=== PATIENT | male | born 1980 | race Caucasian/White ===

== ENCOUNTER → 2021-11-17 | Outpatient (CLI) | payer OTHER, MEDICAID | LOC: M WUC 15:21 | PROVIDERS: ATTEND Family Medicine Adult Medicine | DX: Z11.1 Encounter for screening for respiratory tuberculosis (principal) ==

== ENCOUNTER 2024-06-11 02:34 | Inpatient (IN) | payer MEDICAID, MEDICARE, OTHER, SELFPAY ==
[~2024-06-11] VITALS: Ht 185.4 cm; Wt 69.0 kg
[2024-06-11] VITALS (29 sets, daily range): BP systolic 96–119; BP diastolic 53–73; TEMP 97.7–98.7; O2SAT 97–99
[2024-06-11] MEDS: ROCURONIUM BROMIDE 50MG/5ML VIAL IV STA (02:51)
[2024-06-11] MEDS: ETOMIDATE INJ 20MG/10ML VIAL IV STA (02:51)
[2024-06-11 02:55] LABS: VENOUS HCO3 36.2 MMOL/L (23.0-27.0); VENOUS O2 SATURATION 95.7 % (60.0-80.0); VENOUS PARTIAL PRESSURE CO2 151.5 mmHg (38.0-50.0); VENOUS PARTIAL PRESSURE O2 122.4 mmHg (30.0-50.0); VENOUS PH 6.996 UNITS (7.330-7.430); VENOUS STANDARD HCO3 24.4 MMOL/L; VENOUS TOTAL CO2 40.8 MMOL/L (24.0-28.0)
[2024-06-11 02:59] LABS: BASO # 0.1 10^3/uL (0.0-0.2); BASO % 0.4 % (0.0-1.0); EOS # 0.6 10^3/uL (0.0-0.5); EOS % 2.7 % (0.0-3.0); HEMOGLOBIN 13.7 g/dl (13.5-17.5); LYMPH # 3.5 10^3/uL (1.5-5.0); MEAN CORPUSCULAR HEMOGLOBIN 31.5 pg (27.0-33.0); MEAN CORPUSCULAR HGB CONC 32.6 g/dl (32.0-36.5); MEAN CORPUSCULAR VOLUME 96.6 fl (80.0-96.0); MONO # 1.2 10^3/uL (0.0-0.8); MONO % 5.3 % (2.0-8.0); NEUTROPHILS # 17.9 10^3/uL (1.5-8.5); NEUTROPHILS % 76.2 % (36.0-66.0); PLATELET COUNT, AUTOMATED 313 10^3/uL (150-450); RED BLOOD COUNT 4.35 10^6/uL (4.30-6.10); WHITE BLOOD COUNT 23.5 10^3/uL (4.0-10.0)
[2024-06-11] MEDS ORDERED: PROPOFOL 1,000 MG/100 ML VIAL As Ordered ONE (03:01)
[2024-06-11] MEDS: CEFEPIME HCL 2 GM in DEXTROSE 5% (D5W) ADV/MINI-BAG 50 ML IV ONE (03:05)
[2024-06-11] MEDS: propofoL 1,000 MG in IV 1 EA IV SCH ×3 (03:13→14:47)
[2024-06-11 03:24] LABS: ALBUMIN 3.3 G/DL (3.2-5.2); ALKALINE PHOSPHATASE 172 U/L (40-129); ALT/SGPT 72 U/L (7.0-40); AST/SGOT 30 U/L (<34); BILIRUBIN,DIRECT 0.3 MG/DL (<0.4); BILIRUBIN,TOTAL 0.8 MG/DL (0.3-1.2); BLOOD UREA NITROGEN 19 MG/DL (9-23); CALCIUM LEVEL 8.7 MG/DL (8.5-10.1); CARBON DIOXIDE LEVEL 34 MMOL/L (20-31); CHLORIDE LEVEL 100 MMOL/L (98-107); CK-MB VALUE MASS < 1.0 NG/ML (<3.6); CREATININE FOR GFR 0.78 MG/DL (0.70-1.30); GLOMERULAR FILTRATION RATE > 60.0 (>60); GLUCOSE, FASTING 164 MG/DL (60-100); POTASSIUM SERUM 5.3 MMOL/L (3.5-5.1); SODIUM LEVEL 138 MMOL/L (136-145); TOTAL PROTEIN 7.9 G/DL (5.7-8.2)
[2024-06-11] MEDS ORDERED: ISOVUE-370 76% 100ML VIAL As Ordered ONE (03:34)
[2024-06-11 03:40] LABS: C REACTIVE PROTEIN QUANTITATIV 3.68 MG/DL (<1.0)
[2024-06-11 03:44] LABS: ETHYL ALCOHOL (ETHANOL) < 0.003 % (0.000-0.010)
[2024-06-11 03:51] LABS: ABG BASE EXCESS -4.2 (-2.0-2.0); ABG O2 SATURATION 98.1 % (95.0-99.0); ABG PARTIAL PRESSURE O2 159.1 mmHg (75.0-100.0); ABG TOTAL CO2 33.8 MMOL/L (22.0-29.0)
[2024-06-11 03:53] LABS: KETONE, URINE AUTO RFX NEGATIVE (NEGATIVE); LEUKOCYTE ESTERASE UR AUTO RFX NEGATIVE (NEGATIVE); MUCUS, URINE RFX SMALL (NEGATIVE); NITRITE, URINE AUTO RFX NEGATIVE (NEGATIVE); RBC, URINE AUTO RFX 0 /HPF (0-3); SQUAM EPITHELIAL CELL UR AURFX 0 /HPF (0-6); WBC, URINE AUTO RFX 2 /HPF (0-3)
[2024-06-11 03:54] LABS: ABG PARTIAL PRESSURE CO2 124.9 mmHg (35.0-45.0); ABG pH (ARTERIAL) 6.998 UNITS (7.350-7.450)
[2024-06-11 03:54] LABS: CPK CREATINE PHOSPHOKINASE 49 U/L (46-171); MB/CK RELATIVE INDEX 2.04 (< OR =4)
[2024-06-11 04:09] LABS: AMPHETAMINES LEVEL URINE NEGATIVE (NEGATIVE); BARBITURATES URINE NEGATIVE (NEGATIVE); BENZODIAZEPINES URINE NEGATIVE (NEGATIVE); COCAINE METABOLITE URINE NEGATIVE (NEGATIVE); METHADONE URINE NEGATIVE (NEGATIVE); OPIATES URINE NEGATIVE (NEGATIVE); PHENCYCLIDINE URINE NEGATIVE (NEGATIVE)
[2024-06-11 04:10] LABS: CANNABINOIDS URINE NEGATIVE (NEGATIVE)
[2024-06-11] MEDS: ROCURONIUM BROMIDE 50MG/5ML VIAL IV SCH (05:08)
[2024-06-11] MEDS: dexmedeTOMidine 200 MCG in IV 1 EA IV SCH ×2 (06:23→12:00)
[2024-06-11] MEDS ORDERED: CALC1TAB42 PO (06:44)
[2024-06-11] MEDS ORDERED: ACET-683 PO (06:44)
[2024-06-11] MEDS ORDERED: TOBR1NEB INH (06:44)
[2024-06-11] MEDS ORDERED: PROP20TA72 PO (06:44)
[2024-06-11] MEDS ORDERED: TRAZ-252 PO (06:44)
[2024-06-11] MEDS ORDERED: LEXA5TAB13 PO (06:44)
[2024-06-11] MEDS ORDERED: OLAN2.5T53 PO (06:44)
[2024-06-11] MEDS ORDERED: VENTAER INH (06:44)
[2024-06-11] MEDS ORDERED: NEXI40CA PO (06:44)
[2024-06-11] MEDS ORDERED: FLON1SPR NARES (06:44)
[2024-06-11] MEDS ORDERED: PRED5TA PO (06:44)
[2024-06-11] MEDS ORDERED: IPRA0.00 INH (06:44)
[2024-06-11] MEDS ORDERED: HYDR-3363 PO (06:44)
[2024-06-11] MEDS ORDERED: AZIT-12 PO (06:44)
[2024-06-11] MEDS ORDERED: MAGN400T35 PO (06:44)
[2024-06-11] MEDS ORDERED: TACR0.5C3 PO (06:44)
[2024-06-11] MEDS ORDERED: THERTAB52 PO (06:44)
[2024-06-11] MEDS ORDERED: BACTDSTA PO (06:44)
[2024-06-11] MEDS ORDERED: GABA-1490 PO (06:44)
[2024-06-11] MEDS ORDERED: MYCO500T PO (06:44)
[2024-06-11] MEDS ORDERED: VALG450T10 PO (06:44)
[2024-06-11] MEDS ORDERED: NYST-38 PO (06:44)
[2024-06-11] MEDS ORDERED: CREO24CA PO (06:44)
[2024-06-11] MEDS ORDERED: HOME MED LIST COMPLETE! XX SCH (06:45)
[2024-06-11] MEDS ORDERED: VANCOMYCIN HCL 1,500 MG in IV FLUID PLACE HOLDER 1 EA IV ONE (07:45)
[2024-06-11] MEDS: VANCOMYCIN HCL 1,500 MG, VIAL MATE ADAPTER 1 EACH in NS 500 ML IV ONE (08:07)
[2024-06-11] MEDS: NS (Normal Saline) 0.9% 2,010 ML in IV 1 EA IV ONE ×2 (08:26→10:02)
[2024-06-11 08:27] LABS: ABG BASE EXCESS -0.5 (-2.0-2.0); ABG HCO3 31.5 MMOL/L (22.0-26.0); ABG O2 SATURATION 98.9 % (95.0-99.0); ABG PARTIAL PRESSURE O2 251.6 mmHg (75.0-100.0); ABG STANDARD HCO3 24.1 MMOL/L. (22.0-26.0); ABG TOTAL CO2 34.5 MMOL/L (22.0-29.0)
[2024-06-11 08:39] LABS: ABG PARTIAL PRESSURE CO2 99.1 mmHg (35.0-45.0)
[2024-06-11] MEDS ORDERED: TACROLIMUS 1MG CAP NG ONE (09:25)
[2024-06-11] MEDS ORDERED: MEROPENEM INJ 2 GM in NS 100 ML IV ONE (09:25)
[2024-06-11] MEDS: MYCOPHENOLATE MOFETIL 250 MG CAP (J7517) NG ONE (09:35)
[2024-06-11] MEDS ORDERED: predniSONE 5 MG TAB NG ONE (09:35)
[2024-06-11 09:36] LABS: ABG pH (ARTERIAL) 7.191 UNITS (7.350-7.450)
[2024-06-11 09:37] LABS: ABG BASE EXCESS -2.2 (-2.0-2.0); ABG HCO3 27.2 MMOL/L (22.0-26.0); ABG O2 SATURATION 98.7 % (95.0-99.0); ABG PARTIAL PRESSURE CO2 72.7 mmHg (35.0-45.0); ABG PARTIAL PRESSURE O2 181.2 mmHg (75.0-100.0); ABG STANDARD HCO3 22.6 MMOL/L. (22.0-26.0); ABG TOTAL CO2 29.4 MMOL/L (22.0-29.0)
[2024-06-11] MEDS: TACROLIMUS 0.5MG CAP NG ONE (09:40)
[2024-06-11] MEDS: methylPREDNISolone 125MG 2ML VIAL IV ONE (10:16)
[2024-06-11] MEDS: MEROPENEM INJ 1 GM in IV 1 EA IV ONE ×2 (10:17→11:06)
[2024-06-11] MEDS: NS (Normal Saline) 0.9% 1,000 ML IV ONE (10:59)
[2024-06-11] MEDS ORDERED: VASOPRESSIN IN 0.9 % NACL 20 UNIT in IV 1 EA IV SCH (11:50)
[2024-06-11 11:58] LABS: ABG BASE EXCESS -4.7 (-2.0-2.0); ABG HCO3 24.3 MMOL/L (22.0-26.0); ABG PARTIAL PRESSURE O2 137.9 mmHg (75.0-100.0); ABG STANDARD HCO3 20.6 MMOL/L. (22.0-26.0); ABG TOTAL CO2 26.3 MMOL/L (22.0-29.0)
[2024-06-11 12:01] LABS: ABG PARTIAL PRESSURE CO2 65.4 mmHg (35.0-45.0); ABG pH (ARTERIAL) 7.187 UNITS (7.350-7.450)
[2024-06-11] MEDS: MYCOPHENOLATE 200 MG/ML NG SCH (13:07)
[2024-06-11] MEDS ORDERED: DEXMEDETOMIDINE IV ONE (14:05)
[2024-06-11 14:15] LABS: ABG BASE EXCESS -0.6 (-2.0-2.0); ABG HCO3 26.1 MMOL/L (22.0-26.0); ABG O2 SATURATION 98.2 % (95.0-99.0); ABG PARTIAL PRESSURE CO2 52.1 mmHg (35.0-45.0); ABG PARTIAL PRESSURE O2 138.5 mmHg (75.0-100.0); ABG TOTAL CO2 27.7 MMOL/L (22.0-29.0); ABG pH (ARTERIAL) 7.318 UNITS (7.350-7.450)
[2024-06-11 15:59] LABS: HEMATOCRIT 33.4 % (42.0-52.0); HEMOGLOBIN 10.9 g/dl (13.5-17.5); LYMPH # 0.4 10^3/uL (1.5-5.0); LYMPH % 5.9 % (24.0-44.0); MEAN CORPUSCULAR HEMOGLOBIN 31.7 pg (27.0-33.0); MEAN CORPUSCULAR HGB CONC 32.6 g/dl (32.0-36.5); MEAN CORPUSCULAR VOLUME 97.1 fl (80.0-96.0); MONO % 0.6 % (2.0-8.0); NEUTROPHILS # 6.5 10^3/uL (1.5-8.5); NEUTROPHILS % 93.1 % (36.0-66.0); PLATELET COUNT, AUTOMATED 160 10^3/uL (150-450); RED BLOOD COUNT 3.44 10^6/uL (4.30-6.10)
[2024-06-11] MEDS: NOREPINEPHRINE 4MG IN D5 250ML 4 MG in IV 1 EA IV SCH (16:06)
[2024-06-11 16:26] LABS: CK-MB VALUE MASS 1.3 NG/ML (<3.6)
[2024-06-11 16:28] LABS: C REACTIVE PROTEIN QUANTITATIV 3.54 MG/DL (<1.0); CPK CREATINE PHOSPHOKINASE 30 U/L (46-171); MB/CK RELATIVE INDEX 4.33 (< OR =4)
[2024-06-11] MEDS: IPRATROPIUM 0.5MG/ALBUTEROL 2.5MG INH SOL UD 3ML (DUONEB) NEB SCH (16:35)
[2024-06-11 16:42] LABS: ALBUMIN 2.5 G/DL (3.2-5.2); ALKALINE PHOSPHATASE 136 U/L (40-129); ALT/SGPT 50 U/L (7.0-40); AST/SGOT 18 U/L (<34); BILIRUBIN,TOTAL 0.6 MG/DL (0.3-1.2); BLOOD UREA NITROGEN 16 MG/DL (9-23); CALCIUM LEVEL 8.2 MG/DL (8.5-10.1); CARBON DIOXIDE LEVEL 30 MMOL/L (20-31); CHLORIDE LEVEL 107 MMOL/L (98-107); CREATININE FOR GFR 0.79 MG/DL (0.70-1.30); GLOMERULAR FILTRATION RATE > 60.0 (>60); GLUCOSE, FASTING 145 MG/DL (60-100); MAGNESIUM LEVEL 1.4 MG/DL (1.8-2.4); POTASSIUM SERUM 5.7 MMOL/L (3.5-5.1); SODIUM LEVEL 139 MMOL/L (136-145); TOTAL PROTEIN 6.3 G/DL (5.7-8.2)
[2024-06-11] MEDS: NS (Normal Saline) 0.9% 1,000 ML IV SCH (17:42)
[2024-06-11] MEDS: MEROPENEM INJ 1 GM in IV 1 EA IV SCH (17:45)
[2024-06-11] MEDS: VALGANCICLOVIR 50 MG/ML NG SCH (18:45)
[2024-06-11] MEDS: VANCOMYCIN HCL 1,250 MG, VIAL MATE ADAPTER 1 EACH in NS 250 ML IV ONE (19:09)
[2024-06-11] MEDS ORDERED: TACROLIMUS 0.5MG CAP NG SCH (21:00)
[2024-06-11] MEDS: CEFTOLOZANE/TAZOBACTAM 3 GM in D5W 100 ML IV SCH (21:35)
[2024-06-12] VITALS (77 sets, daily range): BP systolic 84–141; BP diastolic 50–82; TEMP 97.1–99.9; O2SAT 95–100
[2024-06-12] MEDS ORDERED: FENTANYL DRIP LOCK BOX KEY 1 EACH XX PRN (01:20)
[2024-06-12] MEDS: fentaNYL CITRATE/NaCl 1,000 MCG in IV 1 EA IV SCH (01:47)
[2024-06-12] MEDS: VANCOMYCIN HCL 1,000 MG, VIAL MATE ADAPTER 1 EACH in NS 250 ML IV SCH (03:13)
[2024-06-12 05:41] LABS: ABG BASE EXCESS 0.7 (-2.0-2.0); ABG HCO3 25.8 MMOL/L (22.0-26.0); ABG O2 SATURATION 97.7 % (95.0-99.0); ABG PARTIAL PRESSURE CO2 43.4 mmHg (35.0-45.0); ABG PARTIAL PRESSURE O2 114.5 mmHg (75.0-100.0); ABG STANDARD HCO3 25.1 MMOL/L. (22.0-26.0); ABG TOTAL CO2 27.1 MMOL/L (22.0-29.0); ABG pH (ARTERIAL) 7.392 UNITS (7.350-7.450)
[2024-06-12 05:48] LABS: BASO % 0.1 % (0.0-1.0); HEMATOCRIT 29.1 % (42.0-52.0); HEMOGLOBIN 9.6 g/dl (13.5-17.5); LYMPH # 0.9 10^3/uL (1.5-5.0); LYMPH % 7.2 % (24.0-44.0); MEAN CORPUSCULAR VOLUME 93.9 fl (80.0-96.0); MONO # 0.6 10^3/uL (0.0-0.8); MONO % 4.5 % (2.0-8.0); NEUTROPHILS # 11.4 10^3/uL (1.5-8.5); NEUTROPHILS % 87.6 % (36.0-66.0); PLATELET COUNT, AUTOMATED 164 10^3/uL (150-450)
[2024-06-12 06:10] LABS: PROCALCITONIN 0.08 ng/ml
[2024-06-12 06:11] LABS: ALBUMIN 2.3 G/DL (3.2-5.2); ALKALINE PHOSPHATASE 114 U/L (40-129); ALT/SGPT 41 U/L (7.0-40); AST/SGOT 14 U/L (<34); BILIRUBIN,TOTAL 0.3 MG/DL (0.3-1.2); BLOOD UREA NITROGEN 14 MG/DL (9-23); CALCIUM LEVEL 8.3 MG/DL (8.5-10.1); CARBON DIOXIDE LEVEL 29 MMOL/L (20-31); CHLORIDE LEVEL 108 MMOL/L (98-107); GLOMERULAR FILTRATION RATE > 60.0 (>60); GLUCOSE, FASTING 120 MG/DL (60-100); MAGNESIUM LEVEL 1.5 MG/DL (1.8-2.4); POTASSIUM SERUM 4.7 MMOL/L (3.5-5.1); SODIUM LEVEL 144 MMOL/L (136-145); TOTAL PROTEIN 5.7 G/DL (5.7-8.2)
[2024-06-12] MEDS: MAG SULF 1GM/100ML (MAG RUN) 1 GM in IV 1 EA IV SCH (06:34)
[2024-06-12] MEDS: NS (Normal Saline) 0.9% 1,000 ML IV ONE (09:34)
[2024-06-12] MEDS ORDERED: MIDAZOLAM INJ 2MG/2ML VIAL As Ordered ONE (10:19)
[2024-06-12] MEDS: MIDAZOLAM INJ 2MG/2ML VIAL IV ONE (10:39)
[2024-06-12] MEDS: ENOXAPARIN 40MG/0.4ML SYRINGE (J1650 PER 10MG) SC SCH (11:05)
[2024-06-12] MEDS: BACTRIM 160MG/800MG DS TAB PO SCH (11:05)
[2024-06-12] MEDS: IPRATROPIUM 0.5MG/ALBUTEROL 2.5MG INH SOL UD 3ML (DUONEB) NEB SCH (17:35)
[2024-06-12] MEDS: FAMOTIDINE IV BAG 20 MG in IV 1 EA IV ONE (20:52)
[2024-06-13] VITALS (26 sets, daily range): BP systolic 115–155; BP diastolic 71–90; TEMP 97.9–99.1; O2SAT 88–99
[2024-06-13 06:25] LABS: BASO % 0.4 % (0.0-1.0); EOS # 0.1 10^3/uL (0.0-0.5); HEMATOCRIT 29.4 % (42.0-52.0); HEMOGLOBIN 9.5 g/dl (13.5-17.5); LYMPH # 1.4 10^3/uL (1.5-5.0); MEAN CORPUSCULAR HEMOGLOBIN 30.9 pg (27.0-33.0); MEAN CORPUSCULAR HGB CONC 32.3 g/dl (32.0-36.5); MEAN CORPUSCULAR VOLUME 95.8 fl (80.0-96.0); MONO # 0.3 10^3/uL (0.0-0.8); MONO % 4.2 % (2.0-8.0); NEUTROPHILS # 6.1 10^3/uL (1.5-8.5); PLATELET COUNT, AUTOMATED 156 10^3/uL (150-450); RED BLOOD COUNT 3.07 10^6/uL (4.30-6.10)
[2024-06-13 06:49] LABS: ALBUMIN 2.2 G/DL (3.2-5.2); ALKALINE PHOSPHATASE 102 U/L (40-129); ALT/SGPT 33 U/L (7.0-40); AST/SGOT 15 U/L (<34); BILIRUBIN,TOTAL 0.3 MG/DL (0.3-1.2); BLOOD UREA NITROGEN 9 MG/DL (9-23); CALCIUM LEVEL 8.2 MG/DL (8.5-10.1); CARBON DIOXIDE LEVEL 29 MMOL/L (20-31); CHLORIDE LEVEL 110 MMOL/L (98-107); CREATININE FOR GFR 0.78 MG/DL (0.70-1.30); GLOMERULAR FILTRATION RATE > 60.0 (>60); GLUCOSE, FASTING 87 MG/DL (60-100); MAGNESIUM LEVEL 1.4 MG/DL (1.8-2.4); POTASSIUM SERUM 3.6 MMOL/L (3.5-5.1); SODIUM LEVEL 146 MMOL/L (136-145); TOTAL PROTEIN 5.5 G/DL (5.7-8.2)
[2024-06-13] MEDS ORDERED: VALGANCICLOVIR 50 MG/ML NG SCH (08:00)
[2024-06-13] MEDS: MAG SULF 1GM/100ML (MAG RUN) 1 GM in IV 1 EA IV SCH (08:55)
[2024-06-13] MEDS ORDERED: MAGNESIUM OXIDE 400MG TAB (MAG-OX) PO SCH (09:00)
[2024-06-13] MEDS ORDERED: FLUTICASONE PROP 0.05% NASAL SPRAY 16 GM (FLONASE) NARES PRN (10:20)
[2024-06-13] MEDS: OLANZapine 2.5MG TABLET PO SCH (11:27)
[2024-06-13] MEDS: PROPRANOLOL 20 MG TAB PO SCH (11:27)
[2024-06-13] MEDS: GABAPENTIN 300 MG CAP PO SCH (11:27)
[2024-06-13] MEDS: ValGANciclovir HYDROCHLORIDE 450MG TABLET PO SCH (11:27)
[2024-06-13] MEDS: ESCITALOPRAM OXALATE 10 MG TAB (LEXAPRO) PO SCH (11:27)
[2024-06-13] MEDS: PANTOPRAZOLE 40MG TAB (PROTONIX) PO SCH (11:29)
[2024-06-13] MEDS: CREON-24 CAPSULE (PANCRELIPASE) PO SCH (14:11)
[2024-06-13] MEDS: predniSONE 5 MG TAB PO SCH (14:11)
[2024-06-13 16:47] LABS: ABG BASE EXCESS 3.1 (-2.0-2.0); ABG HCO3 27.7 MMOL/L (22.0-26.0); ABG O2 SATURATION 94.5 % (95.0-99.0); ABG PARTIAL PRESSURE CO2 42.3 mmHg (35.0-45.0); ABG PARTIAL PRESSURE O2 75.6 mmHg (75.0-100.0); ABG STANDARD HCO3 27.2 MMOL/L. (22.0-26.0); ABG pH (ARTERIAL) 7.434 UNITS (7.350-7.450)
[2024-06-13] MEDS: traZODone 25MG PER 1/2 TABLET PO SCH (21:08)
[2024-06-13] MEDS: TACROLIMUS 0.5MG CAP PO SCH (21:14)
[2024-06-13] MEDS: MYCOPHENOLATE MOFETIL 250 MG CAP (J7517) PO SCH (21:14)
[2024-06-14 04:00] VITALS: BP 121/84; TEMP 98.1; O2SAT 98
[2024-06-14] MEDS: MAGNESIUM OXIDE 400MG TAB (MAG-OX) PO SCH (10:16)
[2024-06-14 10:19] VITALS: BP 147/90
[2024-06-14] MEDS ORDERED: MAG SULF 1GM/100ML (MAG RUN) 1 GM in IV 1 EA IV SCH (12:05)
[2024-06-14 12:21] VITALS: TEMP 98.3; O2SAT 90
[2024-06-14 12:27] VITALS: BP 137/91; O2SAT 93
[2024-06-14 12:39] LABS: HEMATOCRIT 36.4 % (42.0-52.0); MEAN CORPUSCULAR HEMOGLOBIN 31.8 pg (27.0-33.0); MEAN CORPUSCULAR VOLUME 96.6 fl (80.0-96.0); PLATELET COUNT, AUTOMATED 162 10^3/uL (150-450); RED BLOOD COUNT 3.77 10^6/uL (4.30-6.10)
[2024-06-14 13:07] LABS: BLOOD UREA NITROGEN 12 MG/DL (9-23); CALCIUM LEVEL 8.4 MG/DL (8.5-10.1); CARBON DIOXIDE LEVEL 30 MMOL/L (20-31); CHLORIDE LEVEL 109 MMOL/L (98-107); CREATININE FOR GFR 0.82 MG/DL (0.70-1.30); GLOMERULAR FILTRATION RATE > 60.0 (>60); GLUCOSE, FASTING 76 MG/DL (60-100); POTASSIUM SERUM 3.7 MMOL/L (3.5-5.1); SODIUM LEVEL 147 MMOL/L (136-145)
[2024-06-15] MEDS ORDERED: TIOTROPIUM INHALER/CAPSULE (SPIRIVA) INH ONE (08:00)
[2024-06-15 22:02] LABS: CMV QUANT DNA PCR (PLASMA) Not Detected; CMV SOURCE Whole Blood; log10 CMV QN DNA P1 Not Detected log IU/mL
[2024-06-15 23:02] LABS: MYCOPLASMA PNEUMONIAE IGG 2.23 (<=0.90)
[2024-06-16 07:08] LABS: MYCOPHENOLIC ACID GLUCURONIDE 35.8 mcg/mL (35.0-100.0); MYCOPHENOLIC ACID SERUM 1.7 mcg/mL (1.0-3.5)
== END 2024-06-14 12:55 | disposition short-term general hospital (02) | DRG 131 ==
LOC: M ED 02:34 → M ED INP 14:04 → M ICU 15:22 → M MS4PR 06-13 18:47
PROVIDERS: ADMIT Internal Medicine Critical Care Medicine; ATTEND Student in an Organized Health Care Education/Training Program
PROC: 06HM33Z Insertion of Infusion Device into Right Femoral Vein, Percutaneous Approach (ICD-10-PCS; principal; 2024-06-11)
PROC: 0B968ZX Drainage of Right Lower Lobe Bronchus, Via Natural or Artificial Opening Endoscopic, Diagnostic (ICD-10-PCS; 2024-06-12)
DX: J96.01 Acute respiratory failure with hypoxia (principal); D84.9 Immunodeficiency, unspecified; J18.9 Pneumonia, unspecified organism; I27.20 Pulmonary hypertension, unspecified; E84.0 Cystic fibrosis with pulmonary manifestations; Z94.2 Lung transplant status; E83.42 Hypomagnesemia; K21.9 Gastro-esophageal reflux disease without esophagitis; G89.29 Other chronic pain; F41.9 Anxiety disorder, unspecified; F32.A Depression, unspecified; Z79.899 Other long term (current) drug therapy; Z79.52 Long term (current) use of systemic steroids

== ENCOUNTER 2025-01-09 11:16 | Outpatient (CLI) | payer OTHER ==
[~2025-01-09] VITALS: Ht 188 cm; Wt 68.2 kg
[2025-01-09] MEDS: SODIUM CHLORIDE 0.9% INJ 10 ML SYR IV SCH (06:00)
[~2025-01-09 11:16] MED LIST: ACET-683 PO; ALPR0.25 PO; AZIT-12 PO; BACTDSTA PO; CALC1TAB42 PO; CREO24CA PO; CRES1CAP2 PO; ERGO500029 PO; FLON1SPR NARES; GABA-1490 PO; HEPARIN LOCK FLUSH 100 UNITS/ML 3 ML SYRINGE IV PRN; HYDR-3363 PO; IPRA0.00 INH; LEXA1TAB2 PO; LEXA5TAB13 PO; MAGN400T35 PO; MYCO500T PO; NEXI40CA PO; NYST-38 PO; OLAN2.5T53 PO; ONDA-83 PO; PRED10TA2 PO; PRED5TA PO; PROP20TA72 PO; SODIUM CHLORIDE 0.9% INJ 10 ML SYR IV PRN; TACR0.5C3 PO; TACR1CAP3 PO; THERTAB52 PO; TOBR1NEB INH; TRAZ-252 PO; URSO300C3 PO; VALG450T10 PO; VENTAER INH
[2025-01-09 11:30] VITALS: BP 135/73; O2SAT 96
[2025-01-09] MEDS: ERTAPENEM SODIUM 1 GM in NS MINI-BAG PLUS 50 ML IV ONE (11:38)
[2025-01-09] MEDS: HEPARIN LOCK FLUSH 100 UNITS/ML 3 ML SYRINGE IV SCH (11:39)
[2025-01-09 12:20] VITALS: BP 130/83; O2SAT 96
== END 2025-01-09 12:20 ==
LOC: M INFU 11:16
PROVIDERS: ATTEND Registered Nurse
DX: J15.0 Pneumonia due to Klebsiella pneumoniae (principal); Z91.048 Other nonmedicinal substance allergy status
CPT/HCPCS: 96365; 96375; J1335; J1642